=== PATIENT | male | born 1985 | race African-American/Black ===

== ENCOUNTER 2016-06-28 08:21 | Inpatient (IN) | payer OTHER ==
[~2016-06-28] VITALS: Ht 167.6 cm; Wt 59.9 kg
[2016-06-28] VITALS (8 sets, daily range): BP systolic 110–162; BP diastolic 88–105
--- NOTE | ~2016-06-28 | EEG ---
Formerly [facility] [place] [address] ELECTROENCEPHALOGRAM Name: MAO ABURTO Room #: 442-P [facility] IN M.R.#: [id number] Admission: 06/28/16 Attend Phys: Dustin Conti MD Discharge: Date of : 81 Report #: [id number] THIS REPORT FOR: //name// CC: FAM unknown Dustin Conti DATE OF SERVICE: 06/28/2016 This patient is being evaluated for seizure disorder. EEG was done by placing the electrodes by standard 10-20 system of electrode placement. Both referential and sequential montages were used for recording. Background activity is low voltage and hence difficult to determine. It appeared to be about 8-9 Hz and 15 microvolt. The patient goes to sleep that is associated with further slowing and vertex sharp waves and few sleep spindles, which were symmetrical. Photic stimulation is unremarkable. Throughout the record, no active epileptiform activity was noticed. IMPRESSION: In spite of the patient's history, this patient's EEG does not demonstrate any clear-cut epileptiform activity. It is of low voltage, but otherwise is unremarkable. Thank you very much for this referral. <ELECTRONICALLY SIGNED> By: Ko Carrasquillo MD 07/01/16 1020 1806 13 Ko Carrasquillo MD /nt
--- NOTE | ~2016-06-28 | HC ---
[facility] [place] [address] CONSULTATION Name: MAO ABURTO Room #: 243-P [facility] IN M.R.#: [id number] Admission: 06/28/16 Attend Phys: Dustin Conti MD Discharge: Date of : 81 Report #: [id number] THIS REPORT FOR: //name// CC: FAM unknown Dustin Conti DATE OF SERVICE: 06/29/2016 IDENTIFICATION: Psychiatric consultation is requested for alcohol dependence. HISTORY OF PRESENT ILLNESS: The patient is a 31-year-old single male with reported underlying history of bipolar disorder complicated by alcohol dependence. He currently follows up at [facility] and was recently admitted to their inpatient alcohol rehab program. He now presents to the hospital with recurrence of seizures which appear to be due to alcohol withdrawal. On interview today, the patient feels that his mood has been stable. He has been compliant with his medication. He feels as though he has been making progress with alcohol use now that he has been drinking less. He does understand fully that the goal is for total sobriety and he is in agreement to return back to rehab. ALLERGIES: FENTANYL. MEDICATIONS: Reviewed and at home he is prescribed Seroquel 25 mg 4 times daily plus 100 mg at bedtime, Trintellix 10 mg daily, naltrexone 50 mg daily. Here in hospital he has orders for Haldol and Ativan as needed. PAST MEDICAL HISTORY: Past history of seizures, transaminitis, hypertension, diabetes, pancreatitis, hyperlipidemia, migraines. FAMILY HISTORY: Noncontributory. SOCIAL HISTORY: He is single. He has good support from his parents. LABORATORY DATA: Blood alcohol level less than 10. AST 62, ALT 58, bilirubin 1.1. MENTAL STATUS EXAMINATION: Well groomed, pleasant, good eye contact. Speech is regular rate and rhythm. Thought process linear, logical, and coherent. No hallucinations or delusions. No suicidal or homicidal ideation. Affect calm and euthymic. Alert and oriented x 3. Insight and judgment good. DIAGNOSES: Alcohol dependence, bipolar disorder by history. PLAN: Alcohol withdrawal symptoms are currently well controlled. We will [facility] [address] [place] [address] CONSULTATION Name: MAO ABURTO Room #: 243-P [facility] IN ..#: [id number] Admission: 06/28/16 Attend Phys: Dustin Conti MD Discharge: Date of : 81 Report #: [id number] resume his home psychiatric medications. Trintellix is non-formulary here in hospital and so we will ask family to bring in his home supply. Plan is for the patient to return to [facility] inpatient chemical dependency program once he is medically stable. The patient appears to have good motivation for sobriety at this point. Thank you for this consultation. Please contact me with any further questions or concerns. By: [phone] Teresa Resendiz MD /nt
[2016-06-28 08:46] LABS: HEMATOCRIT 37.1 % (42.0-52.0); HEMOGLOBIN 11.9 gm/dL (14.0-18.0); MCH 30.2 pg (26.0-34.0); MCV 94.4 fL (80.0-100.0); PLATELET COUNT 403 thou/uL (150-400); RBC 3.93 mil/uL (4.50-6.00); WBC 9.1 thou/uL (4.0-11.0)
[2016-06-28 08:48] LABS: MANUAL DIFF YES
[2016-06-28 08:56] LABS: CALCIUM 9.7 mg/dL (8.5-10.1); CREATININE 1.1 mg/dL (0.7-1.3); POTASSIUM 3.5 mmol/L (3.5-5.1)
[2016-06-28 09:19] LABS: ABSOLUTE NEUTROPHILS 4.4 thou/uL (1.4-8.2); ANISOCYTOSIS 1+; PLATELET ESTIMATE INCREASED; TOTAL CELL COUNT 100
[2016-06-28 09:31] LABS: AMP/METHAMP Negative (Negative); BARBITURATES Negative (Negative); BENZODIAZEPINES Negative (Negative); COCAINE Negative (Negative); METHADONE Negative (Negative); OPIATES Negative (Negative); PCP Negative (Negative); THC Negative (Negative)
[2016-06-28] MEDS ORDERED: SEROQUEL 25 MG25 M1 PO (10:01)
[2016-06-28] MEDS ORDERED: SEROQUEL 50 MG50 MG PO (10:01)
[2016-06-28] MEDS ORDERED: CARVEDILOL3.125 MG PO (10:01)
[2016-06-28] MEDS ORDERED: REVIA 50 MG TAB50 M1 PO (10:02)
[2016-06-28] MEDS ORDERED: GABAPENTIN 100100 MG PO (10:03)
[2016-06-28] MEDS ORDERED: PANTOPRAZOLE SO40 M1 PO (10:03)
[2016-06-28] MEDS ORDERED: HUMALOG100 UNIT/2 SQ (10:04)
[2016-06-28] MEDS ORDERED: BRINTELLIX10 MG PO (10:04)
[2016-06-28] MEDS ORDERED: KEPPRA 500 MG500 M1 PO (11:17)
[2016-06-28 13:01] LABS: HEMATOCRIT 35.7 % (42.0-52.0); HEMOGLOBIN 12.2 gm/dL (14.0-18.0); MANUAL DIFF YES; MCH 30.5 pg (26.0-34.0); MCV 89.6 fL (80.0-100.0); PLATELET COUNT 352 thou/uL (150-400); RBC 3.99 mil/uL (4.50-6.00); RDW 19.8 % (10.5-14.5); WBC 6.7 thou/uL (4.0-11.0)
[2016-06-28 13:16] LABS: ANION GAP 15 mmol/L (7-16); BUN 10 mg/dL (7-18); CALCIUM 9.8 mg/dL (8.5-10.1); CHLORIDE 95 mmol/L (98-107); CO2 27 mmol/L (21-32); GLUCOSE 221 mg/dL (74-106); POTASSIUM 3.1 mmol/L (3.5-5.1); SODIUM 137 mmol/L (136-145)
[2016-06-28 13:20] LABS: ALBUMIN 3.9 g/dL (3.4-5.0); ALKALINE PHOSPHATASE 155 U/L (46-116); PHOSPHORUS 2.7 mg/dL (2.5-4.9); SGOT 62 U/L (15-37); SGPT 58 U/L (30-65); TOTAL BILIRUBIN 1.1 mg/dL (<0.1-1.0); TOTAL CELL COUNT 100; TOTAL PROTEIN 8.4 g/dL (6.4-8.2)
[2016-06-28 13:20] LABS: FOLIC ACID 9.8 ng/mL (8.6-58.9)
[2016-06-28 13:22] LABS: ABSOLUTE NEUTROPHILS 5.2 thou/uL (1.4-8.2); ANISOCYTOSIS 1+
[2016-06-28 13:29] LABS: MAGNESIUM 0.9 mg/dL (1.8-2.4)
[2016-06-28 15:20] LABS: URINE BILIRUBIN NEGATIVE (Negative); URINE BLOOD NEGATIVE (Negative); URINE COLOR YELLOW; URINE GLUCOSE-RANDOM* NEGATIVE (Negative); URINE KETONES NEGATIVE (Negative); URINE NITRITE NEGATIVE (Negative); URINE PROTEIN (DIPSTICK) 1+ (Negative); URINE UROBILINOGEN 0.2 E.U./dl (0.2-1.0)
[2016-06-28 15:36] LABS: SQUAMOUS None Seen /LPF (0-3); URINE WBC 0-5 Rare /HPF (0-5)
[2016-06-28 15:37] LABS: BACTERIA 1-9 Few /HPF (None Seen); CASTS None Seen /LPF (None Seen); CRYSTALS None Seen /LPF (None Seen); URINE RBC None Seen /HPF (0-2)
[2016-06-28 17:47] LABS: MAGNESIUM 1.6 mg/dL (1.8-2.4); POTASSIUM 3.2 mmol/L (3.5-5.1)
[2016-06-28 22:06] LABS: FREE T4 1.17 ng/dL (0.82-1.77)
[2016-06-29] VITALS (23 sets, daily range): BP systolic 97–175; BP diastolic 80–146
[2016-06-29 04:35] LABS: HEMATOCRIT 34.4 % (42.0-52.0); HEMOGLOBIN 11.7 gm/dL (14.0-18.0); MCH 30.7 pg (26.0-34.0); MCHC 34.1 g/dL (28.0-37.0); MCV 89.9 fL (80.0-100.0); RBC 3.82 mil/uL (4.50-6.00); RDW 19.5 % (10.5-14.5); WBC 8.9 thou/uL (4.0-11.0)
[2016-06-29 04:40] LABS: CALCIUM 9.2 mg/dL (8.5-10.1); CREATININE 0.8 mg/dL (0.7-1.3); POTASSIUM 3.2 mmol/L (3.5-5.1)
[2016-06-30] VITALS (19 sets, daily range): BP systolic 97–172; BP diastolic 54–157
[2016-06-30 06:23] LABS: CREATININE 0.8 mg/dL (0.7-1.3); MAGNESIUM 1.3 mg/dL (1.8-2.4); POTASSIUM 3.9 mmol/L (3.5-5.1)
[2016-07-01 04:40] VITALS: BP 171/113
[2016-07-01 08:00] VITALS: BP 121/89
[2016-07-01 11:29] VITALS: BP 140/96
[2016-07-01] MEDS ORDERED: VITAMIN B-1100 M2 PO (12:20)
[2016-07-01] MEDS ORDERED: BRINTELLIX10 MG PO (12:25)
[2016-07-01] MEDS ORDERED: SEROQUEL 25 MG25 M1 PO (12:27)
[2016-07-01] MEDS ORDERED: SEROQUEL 50 MG50 MG PO (12:28)
[2016-07-01] MEDS ORDERED: NORVASC5 MG PO (12:42)
[2016-07-01] MEDS ORDERED: HUMALOG100 UNIT/2 SQ (12:47)
[2016-07-01 13:13] VITALS: BP 176/117
[2016-07-01 14:08] VITALS: BP 176/117
[2016-07-01 16:11] VITALS: BP 176/117
== END 2016-07-01 16:05 | disposition home or self-care (01) | DRG 101 ==
LOC: ER 08:21 → ICU 11:33 → EROBS 11:33 → ICU 13:07 → 4S 06-30 17:22
PROVIDERS: Emergency Medicine; Internal Medicine; Orthopaedic Surgery
DX: G40.509 Epileptic seizures related to external causes, not intractable, without status epilepticus (principal); F10.239 Alcohol dependence with withdrawal, unspecified; E83.42 Hypomagnesemia; E87.6 Hypokalemia; E11.8 Type 2 diabetes mellitus with unspecified complications; I10 Essential (primary) hypertension; G43.909 Migraine, unspecified, not intractable, without status migrainosus; E78.5 Hyperlipidemia, unspecified; F31.9 Bipolar disorder, unspecified; Z88.6 Allergy status to analgesic agent; Z79.899 Other long term (current) drug therapy; Z79.4 Long term (current) use of insulin; Z90.49 Acquired absence of other specified parts of digestive tract
CPT/HCPCS: 10078; 10100

== ENCOUNTER 2016-07-13 19:39 | Inpatient (IN) | payer OTHER ==
[~2016-07-13] VITALS: Ht 167.6 cm; Wt 61.7 kg
--- NOTE | ~2016-07-13 | EKG ---
[address] [employer] [place] [address] ELECTROCARDIOGRAM REPORT Name: WENDY ABURTOAMAURY Room #: 303-P ADM IN M.R.#: [id number] Admission: 07/13/16 Attend Phys: Angie Haider MD Discharge: Date of : 81 Report #: [id number] THIS REPORT FOR: //name// [facility] ED Test Date: 2016-07-13 Test Time: 21:20:05 Pat Name: MAO ABURTO Department: Room: 303 Gender: M Director [employer]: [id number] : 1985 Requested By: Rogers Hankins Order Number: [id number] MD: Frank Canseco Measurements Intervals [place] Rate: 99 P: 34 DC: 137 QRS: 34 QRSD: 80 T: 13 QT: 390 QTc: 501 Interpretive Statements Sinus rhythm Borderline T abnormalities, lateral leads Prolonged QT interval Baseline wander in lead(s) V4,V5,V6 No previous ECG available for comparison Electronically Signed On 07-14-2016 8:58:54 CDT by Frank Canseco [email or web address] <ELECTRONICALLY SIGNED> By: Frank Canseco MD, [facility] 07/14/1658 19 19 Frank Canseco MD, [facility] /EPI
[~2016-07-13 19:39] MED LIST: BRINTELLIX10 MG PO; CARVEDILOL3.125 MG PO; GABAPENTIN 100100 MG PO; HUMALOG100 UNIT/2 SQ; KEPPRA 500 MG500 M1 PO; NORVASC5 MG PO; PANTOPRAZOLE SO40 M1 PO; REVIA 50 MG TAB50 M1 PO; SEROQUEL 25 MG25 M1 PO; SEROQUEL 50 MG50 MG PO; VITAMIN B-1100 M2 PO
[2016-07-13 19:46] VITALS: BP 133/89
[2016-07-13 21:19] LABS: ABSOLUTE NEUTROPHILS 4.3 thou/uL (1.4-8.2); BASOPHILS 0.5 % (0.0-2.0); EOSINOPHILS 0.5 % (0.0-3.0); HEMATOCRIT 35.3 % (42.0-52.0); HEMOGLOBIN 12.1 gm/dL (14.0-18.0); LYMPHOCYTES 29.8 % (24.0-44.0); MCH 31.2 pg (26.0-34.0); MCHC 34.2 g/dL (28.0-37.0); MONOCYTES 4.6 % (1.0-8.0); PLATELET COUNT 236 thou/uL (150-400); POLYS 64.6 % (36.0-66.0); RBC 3.88 mil/uL (4.50-6.00); RDW 17.8 % (10.5-14.5); WBC 6.7 thou/uL (4.0-11.0)
[2016-07-13 21:20] LABS: MANUAL DIFF NO
[2016-07-13 21:24] LABS: ANION GAP 21 mmol/L (7-16); BUN 13 mg/dL (7-18); CALCIUM 7.6 mg/dL (8.5-10.1); CHLORIDE 101 mmol/L (98-107); CO2 20 mmol/L (21-32); CREATININE 0.9 mg/dL (0.7-1.3); GLUCOSE 85 mg/dL (74-106); POTASSIUM 3.5 mmol/L (3.5-5.1); SODIUM 142 mmol/L (136-145)
[2016-07-13 21:34] LABS: ALBUMIN 3.4 g/dL (3.4-5.0); ALKALINE PHOSPHATASE 199 U/L (46-116); NT-PRO BRAIN NAT PEPTIDE 6 pg/mL (<300); SGOT 241 U/L (15-37); SGPT 82 U/L (30-65); TOTAL BILIRUBIN 0.6 mg/dL (<0.1-1.0); TOTAL PROTEIN 8.1 g/dL (6.4-8.2); TROPONIN-I < 0.04 ng/mL (<0.04-0.07)
[2016-07-13 21:41] LABS: MAGNESIUM 0.9 mg/dL (1.8-2.4)
[2016-07-13 23:05] VITALS: BP 114/78
[2016-07-13 23:16] VITALS: BP 111/69
[2016-07-14 02:50] VITALS: BP 115/64
[2016-07-14 08:15] LABS: CREATININE 0.9 mg/dL (0.7-1.3); MAGNESIUM 1.4 mg/dL (1.8-2.4); POTASSIUM 3.5 mmol/L (3.5-5.1); TOTAL BILIRUBIN 0.8 mg/dL (<0.1-1.0); TOTAL PROTEIN 7.2 g/dL (6.4-8.2)
[2016-07-14 08:28] VITALS: BP 127/84
[2016-07-14 11:49] VITALS: BP 143/103
[2016-07-14 16:55] VITALS: BP 141/107
[2016-07-14 19:43] VITALS: BP 121/85
[2016-07-14 19:44] VITALS: BP 114/102
[2016-07-15 03:51] VITALS: BP 143/109
[2016-07-15 05:54] LABS: HEMATOCRIT 34.2 % (42.0-52.0); HEMOGLOBIN 11.8 gm/dL (14.0-18.0); MCH 31.5 pg (26.0-34.0); MCHC 34.4 g/dL (28.0-37.0); MCV 91.5 fL (80.0-100.0); RBC 3.73 mil/uL (4.50-6.00)
[2016-07-15 06:21] LABS: CALCIUM 8.8 mg/dL (8.5-10.1); CREATININE 0.8 mg/dL (0.7-1.3); POTASSIUM 3.1 mmol/L (3.5-5.1)
[2016-07-15 08:16] VITALS: BP 150/116
[2016-07-15 11:17] VITALS: BP 152/114
[2016-07-15 19:50] VITALS: BP 151/110
[2016-07-15 23:30] VITALS: BP 134/101
[2016-07-16 04:00] VITALS: BP 120/89
[2016-07-16 04:06] LABS: GLYCOHEMOGLOBIN (HGB A1C) 5.6 % (4.8-5.6)
[2016-07-16 05:18] LABS: HEMATOCRIT 37.4 % (42.0-52.0); HEMOGLOBIN 12.7 gm/dL (14.0-18.0); MCH 30.9 pg (26.0-34.0); MCV 90.9 fL (80.0-100.0); RBC 4.12 mil/uL (4.50-6.00); RDW 16.8 % (10.5-14.5); WBC 7.9 thou/uL (4.0-11.0)
[2016-07-16 05:37] LABS: ALBUMIN 3.4 g/dL (3.4-5.0); CALCIUM 9.1 mg/dL (8.5-10.1); CREATININE 0.7 mg/dL (0.7-1.3); DIRECT BILIRUBIN 0.2 mg/dL (<0.1-0.3); MAGNESIUM 2.7 mg/dL (1.8-2.4); POTASSIUM 3.6 mmol/L (3.5-5.1); TOTAL BILIRUBIN 0.8 mg/dL (<0.1-1.0); TOTAL PROTEIN 8.1 g/dL (6.4-8.2)
[2016-07-16 07:30] VITALS: BP 135/102
[2016-07-16 12:00] VITALS: BP 128/94
[2016-07-16 16:00] VITALS: BP 136/99
[2016-07-16 20:00] VITALS: BP 145/91
[2016-07-17 04:00] VITALS: BP 103/86
[2016-07-17 08:00] VITALS: BP 111/77
[2016-07-17] MEDS ORDERED: CLONIDINE0.1 PO (11:01)
[2016-07-17 11:17] VITALS: BP 111/77
[2016-07-17 12:00] VITALS: BP 115/85
== END 2016-07-17 14:31 | disposition home or self-care (01) | DRG 897 ==
LOC: ER 19:39 → EROBS 22:09 → 3N 22:09
PROVIDERS: Emergency Medicine; Family Medicine; Nurse Practitioner
DX: F10.239 Alcohol dependence with withdrawal, unspecified (principal); F10.229 Alcohol dependence with intoxication, unspecified; G40.909 Epilepsy, unspecified, not intractable, without status epilepticus; I10 Essential (primary) hypertension; K70.10 Alcoholic hepatitis without ascites; E83.42 Hypomagnesemia; E11.9 Type 2 diabetes mellitus without complications; F31.9 Bipolar disorder, unspecified; R74.0 Nonspecific elevation of levels of transaminase and lactic acid dehydrogenase [LDH]; G43.909 Migraine, unspecified, not intractable, without status migrainosus; Y90.0 Blood alcohol level of less than 20 mg/100 ml; Z79.4 Long term (current) use of insulin; Z88.6 Allergy status to analgesic agent; Z79.899 Other long term (current) drug therapy; Z90.49 Acquired absence of other specified parts of digestive tract
CPT/HCPCS: 10096

== ENCOUNTER 2018-01-20 05:52 | Emergency (ER) | payer OTHER ==
[~2018-01-20] VITALS: Ht 167.6 cm; Wt 65.8 kg
[~2018-01-20 05:52] MED LIST changes: +CLONIDINE0.1 PO
[2018-01-20 06:38] LABS: URINE BILIRUBIN NEGATIVE (Negative); URINE BLOOD NEGATIVE (Negative); URINE CLARITY CLEAR; URINE COLOR YELLOW; URINE GLUCOSE-RANDOM* 1+ (Negative); URINE KETONES NEGATIVE (Negative); URINE LEUKOCYTES-REFLEX NEGATIVE (Negative); URINE NITRITE-REFLEX NEGATIVE (Negative); URINE PROTEIN (DIPSTICK) 1+ (Negative); URINE UROBILINOGEN 0.2 E.U./dl (0.2-1.0)
[2018-01-20 06:39] LABS: AMP/METHAMP Negative (Negative); BARBITURATES Negative (Negative); BENZODIAZEPINES Negative (Negative); COCAINE Negative (Negative); METHADONE Negative (Negative); OPIATES Negative (Negative); PCP Negative (Negative)
[2018-01-20 06:48] LABS: HEMATOCRIT 33.9 % (42.0-52.0); HEMOGLOBIN 11.2 gm/dL (14.0-18.0); MCH 29.3 pg (26.0-34.0); MCHC 33.1 g/dL (28.0-37.0); MCV 88.7 fL (80.0-100.0); PLATELET COUNT 240 thou/uL (150-400); RBC 3.82 mil/uL (4.50-6.00); RDW 16.4 % (10.5-14.5); WBC 6.4 thou/uL (4.0-11.0)
[2018-01-20 06:50] LABS: BACTERIA-REFLEX None Seen /HPF (None Seen); CASTS None Seen /LPF (None Seen); CRYSTALS None Seen /LPF (None Seen); SQUAMOUS 0-3 Few /LPF (0-3); URINE RBC None Seen /HPF (0-2); URINE WBC-REFLEX 0-5 Rare /HPF (0-5)
[2018-01-20 07:01] LABS: CALCIUM 9.1 mg/dL (8.5-10.1); POTASSIUM 3.4 mmol/L (3.5-5.1)
[2018-01-20 08:49] LABS: ABSOLUTE NEUTROPHILS 2.3 thou/uL (1.4-8.2)
[2018-01-20 08:50] LABS: ANISOCYTOSIS 1+
== END 2018-01-20 10:30 | disposition home or self-care (01) ==
LOC: ER 05:52
PROVIDERS: Student in an Organized Health Care Education/Training Program
DX: R56.9 Unspecified convulsions (principal); F10.129 Alcohol abuse with intoxication, unspecified; R41.82 Altered mental status, unspecified; I10 Essential (primary) hypertension; E11.9 Type 2 diabetes mellitus without complications; E78.00 Pure hypercholesterolemia, unspecified; E78.5 Hyperlipidemia, unspecified; G43.909 Migraine, unspecified, not intractable, without status migrainosus; Z90.49 Acquired absence of other specified parts of digestive tract; F31.9 Bipolar disorder, unspecified; K86.1 Other chronic pancreatitis; Z79.4 Long term (current) use of insulin; Z88.4 Allergy status to anesthetic agent; Y90.0 Blood alcohol level of less than 20 mg/100 ml

== ENCOUNTER 2018-11-06 20:12 | Emergency (ER) | payer OTHER ==
[~2018-11-06] VITALS: Ht 167.6 cm; Wt 68.0 kg
[2018-11-06 20:38] LABS: HEMATOCRIT 27.1 % (42.0-52.0); HEMOGLOBIN 8.7 gm/dL (14.0-18.0); MCH 29.3 pg (26.0-34.0)
[2018-11-06 20:40] LABS: MCHC 32.1 g/dL (28.0-37.0); MCV 91.4 fL (80.0-100.0); PLATELET COUNT 310 thou/uL (150-400); RBC 2.97 mil/uL (4.50-6.00); RDW 16.1 % (10.5-14.5)
[2018-11-06 21:10] LABS: ABSOLUTE NEUTROPHILS 5.8 thou/uL (1.4-8.2)
[2018-11-06 23:03] VITALS: BP 90/39
== END 2018-11-06 23:04 | disposition left against medical advice (07) ==
LOC: ER 20:12
PROVIDERS: Emergency Medicine
DX: E11.649 Type 2 diabetes mellitus with hypoglycemia without coma (principal); I10 Essential (primary) hypertension; E78.00 Pure hypercholesterolemia, unspecified; G43.909 Migraine, unspecified, not intractable, without status migrainosus; F31.9 Bipolar disorder, unspecified; Z90.49 Acquired absence of other specified parts of digestive tract; Z88.8 Allergy status to other drugs, medicaments and biological substances